=== PATIENT | male | born 1985 | race Caucasian/White ===

== ENCOUNTER 2017-10-27 18:38 | Emergency (ER) | payer OTHER ==
[2017-10-27] MEDS ORDERED: MAG HYDROX/AL HYDROX/SIMETH 30 ML UDCUP PO ONE (19:30)
[2017-10-27] MEDS ORDERED: FAMOTIDINE 20 MG in NS 100 ML IV ONE (19:30)
[2017-10-27] MEDS ORDERED: NS 1,000 ML IV ONE (19:30)
[2017-10-27] MEDS ORDERED: HYOSCYAMINE SULFATE 0.125 MG TAB PO ONE (19:30)
[2017-10-27] MEDS ORDERED: LIDOCAINE 2% VISCOUS 15 ML UDCUP PO ONE (19:30)
--- NOTE | 2017-10-27 19:41 | EDPHY ---
H & P Time Seen by Provider: 10/27/17 18:49 HPI/ROS: CHIEF COMPLAINT: Abdominal pain HISTORY OF PRESENT ILLNESS: Patient states today around 3:00 p.m. He was sitting at a table playing board games with some friends when he developed a sharp"grabbing"pain in his epigastric region. He had eaten some gummy worms and drank water but had not had any other food immediately prior to the onset of pain. He has not been drinking any alcohol. He did notice on his drive home that the pain was intense and it"hurt to breathe"and he felt a little lightheaded. After he arrived home he started feeling better and ate some bread which made the pain"spike up again". He did notice some radiation to the right flank. He had no nausea or vomiting. He has had no stool changes. He has never had this pain before although he does state that he has a history of heartburn but this feels quite different. Also no urinary complaints. No recent illnesses. Did start Accutane 1 month ago for acne. He has been having lab tests checked since on this medication. He has also had some joint pains recently which was thought to be related to the Accutane. REVIEW OF SYSTEMS: Constitutional: No fever, no chills. Eyes: No discharge. ENT: No sore throat. Cardiovascular: No chest pain, no palpitations. Respiratory: No cough, no shortness of breath. Gastrointestinal: Per HPI Genitourinary: No dysuria. No testicular pain. Musculoskeletal: No back pain. Skin: No rashes. Neurological: No headache. General Appearance: Alert, no distress. Eyes: Pupils equal and round no pallor or injection. ENT, Mouth: Mucous membranes moist. Respiratory: There are no retractions, lungs are clear to auscultation. Cardiovascular: Regular rate and rhythm. Normal femoral pulses. Gastrointestinal: Tenderness to palpation in the epigastric region. No masses , bowel sounds present but hypoactive. No CVA tenderness. Negative Saavedra's. Neurological: No focal neurologic deficits. Normal cranial nerves. Skin: Warm and dry, no rashes. Musculoskeletal: Neck is supple nontender. Extremities are symmetrical, full range of motion, no edema. Psychiatric: Patient is oriented X 3, there is no agitation. Medical/surgical history: Acne. No surgeries. Social history: No alcohol or tobacco. Family history: no early coronary artery disease however paternal grandfather of myocardial infarction in his 60s or 70s. Father with noninsulin dependent diabetes, mother with hypertension. Smoking Status: Never smoked Constitutional: Initial Vital Signs Temperature (C) 36.8 C 10/27/17 18:45 Heart Rate 75 10/27/17 18:45 Respiratory Rate 16 10/27/17 18:45 Blood Pressure 123/85 H 10/27/17 18:45 O2 Sat (%) 98 10/27/17 18:45 O2 Delivery Mode Room Air Allergies/Adverse Reactions: No Known Allergies Allergy (Verified 10/27/17 18:44) Home Medications: Medication Instructions Recorded Myorisan 10/27/17 Triamcinolone 0.1% 10/27/17 Medical Decision Making - Diagnostics EKG Interpretation: EKG shows normal sinus rhythm with a first-degree AV block. Otherwise normal EKG see trace master. Imaging Results: Imaging Impressions Abdomen Ultrasound 10/27/17 19:31 Impression: Normal right upper quadrant ultrasound. Findings discussed with the nurse working with Tara Webb MD at 20:37 hour, 10/27/2017. Abdomen CT 10/27/17 21:26 Impression: 1. Tiny incidental 1 to 2 mm nonobstructive calculus mid left kidney. Otherwise , normal CT abdomen and pelvis with contrast enhancement. 2. No CT evidence of appendicitis, abscess or bowel obstruction. Findings discussed with Tara Webb MD at 22:15 hour, 10/27/2017. Imaging: Discussed imaging studies w/ library sales consultant Radiologist ED Course/Re-evaluation: 9:40 p.m. Re-evaluation shows patient improved, pain 2/10. 10:10 p.m. patient tried p.o. Water which made his pain worse. Still awaiting lipase. CT scan abdomen and pelvis ordered. 10:[address] scan discussed. No findings of note on CT. Will try metoclopramide and Benadryl for epigastric pain. Reviewed follow-up and return precautions. Differential Diagnosis: Differential diagnosis includes but is not limited to gastroesophageal reflux disease, peptic ulcer disease, pancreatitis, cholecystitis. After extensive evaluation in the emergency department unclear cause of patient's discomfort. Possibly exacerbation of his gastroesophageal reflux disease however atypical per patient. No evidence of surgical abdomen, pancreatitis, gallbladder disease , kidney stone, coronary artery disease. Made recommendations to try acid reducing medications and follow up with primary care for H pylori testing as indicated. Discussed in detail follow-up options and return precautions. Stable for discharge. - Data Points Laboratory Results: 10/27/17 10/27/17 19:59 19:07 POC Sodium 142 mEq/L mEq/L (135-145) POC Potassium 3.7 mEq/L mEq/L (3.3-5.0) POC Chloride 105.0 mEq/L mEq/L (97-110) POC Total CO2 25 mEq/L mEq/L (22-31) POC BUN 18 mg/dL mg/dL (7-23) POC Creatinine 1.0 mg/dL mg/dL (0.7-1.3) POC Glucose 106 mg/dL H mg/dL (70-100) POC Calcium 9.1 mg/dL mg/dL (8.5-10.4) POC Total Bilirubin 1.5 mg/dL H mg/dL (0.1-1.4) POC AST 61 IU/L H IU/L (17-59) POC ALT 56 IU/L IU/L (21-72) POC Alk Phosphatase 84 IU/L IU/L (38-126) POC Total Protein 7.6 g/dL g/dL (6.3-8.2) POC Albumin 4.0 g/dL g/dL (3.5-5.0) Lipase 80 IU/L IU/L (23-300) Medications Given: Discontinued Medications Al Hydroxide/Mg Hydroxide (Maalox Susp) 30 ml PO ONCE ONE Stop: 10/27/17 19:31 Last Admin: 10/27/17 19:46 Dose: 30 ml Diphenhydramine HCl (Benadryl Injection) 50 mg IVP EDNOW ONE Stop: 10/27/17 22:30 Last Admin: 10/27/17 22:35 Dose: 50 mg Hyoscyamine Sulfate (Levsin, Hyomax-Sl) 0.25 mg PO ONCE ONE Stop: 10/27/17 19:31 Last Admin: 10/27/17 19:46 Dose: 0.25 mg Sodium Chloride (Ns) 1,000 mls @ 0 mls/hr IV EDNOW ONE; Wide Open PRN Reason: Protocol Stop: 10/27/17 19:31 Last Admin: 10/27/17 19:46 Dose: 1,000 mls Famotidine 20 mg/ Sodium (Chloride) 102 mls @ 408 mls/hr IV EDNOW ONE Stop: 10/27/17 19:44 Last Admin: 10/27/17 19:45 Dose: 102 mls Sodium Chloride (Ns) 500 mls @ 0 mls/hr IV ONCE ONE PRN Reason: Wide Open Stop: 10/27/17 21:06 Last Admin: 10/27/17 21:11 Dose: 500 mls Ketorolac Tromethamine (Toradol) 15 mg IVP EDNOW ONE Stop: 10/27/17 21:06 Last Admin: 10/27/17 21:11 Dose: 15 mg Lidocaine (Lidocaine 2% Viscous) 15 ml PO ONCE ONE Stop: 10/27/17 19:31 Last Admin: 10/27/17 19:46 Dose: 15 ml Metoclopramide HCl (Reglan Injection) 10 mg IVP EDNOW ONE Stop: 10/27/17 22:30 Last Admin: 10/27/17 22:35 Dose: 10 mg Point of Care Test Results: CBC CBC Collection Date 10/27/17 CBC Collection Time 19:35 WBC 11.3 RBC 5.32 HGB 15.6 HCT 46.3 PLT 216 Neut # 10.2 Neut 89.9 LYMPH # 0.5 LYMPH 4.8 Other WBC # 0.6 Other WBC 5.3 MCV 87 Chemistry 10/27/17 19:59 POC Sodium 142 mEq/L mEq/L (135-145) POC Potassium 3.7 mEq/L mEq/L (3.3-5.0) POC Chloride 105.0 mEq/L mEq/L (97-110) POC Total CO2 25 mEq/L mEq/L (22-31) POC BUN 18 mg/dL mg/dL (7-23) POC Creatinine 1.0 mg/dL mg/dL (0.7-1.3) POC Glucose 106 mg/dL H mg/dL (70-100) POC Calcium 9.1 mg/dL mg/dL (8.5-10.4) POC Total Bilirubin 1.5 mg/dL H mg/dL (0.1-1.4) POC AST 61 IU/L H IU/L (17-59) POC ALT 56 IU/L IU/L (21-72) POC Alk Phosphatase 84 IU/L IU/L (38-126) POC Total Protein 7.6 g/dL g/dL (6.3-8.2) POC Albumin 4.0 g/dL g/dL (3.5-5.0) Urine Dip Collection Date 10/27/17 Collection Time 21:50 Specific [place] (1.002-1.030) 1.025 PH (5.0-7.5) 6.0 Leukocytes (Negative) Trace Nitrites (Negative) Negative Protein (Negative) Trace Glucose (Negative) Negative Ketones (Negative) Negative Urobilnogen (0.2-1.0 EU) 0.2 Bilirubin (Negative) Negative Blood (Negative) Negative Departure - Departure Clinical Impression: Abdominal pain Qualifiers: Abdominal location: epigastric Qualified Code(s): R10.13 - Epigastric pain Condition: Fair Instructions: Epigastric Pain (ED) Additional Instructions: Try acid reducing medications as discussed. Follow up with Dr. Cruz and inquire about H pylori testing. Please return to the emergency department if you developed more severe symptoms, vomiting, fever or other concerns. Referrals: Dann Cruz MD [Primary Care Provider] - As per Instructions
--- NOTE | 2017-10-27 20:04 | CPEKG ---
Heart Rate: 64 RR Interval: 938 P-R Interval: 212 QRSD Interval: 88 QT Interval: 384 QTC Interval: 396 P [place]: 41 QRS [place]: -12 T Wave [place]: 22 EKG Severity - ABNORMAL ECG - EKG Impression: SINUS RHYTHM EKG Impression: FIRST DEGREE AV BLOCK EKG Impression: Otherwise normal EKG Electronically Signed By: Tara Webb 27-Oct-2017 20:08:48
[2017-10-27] MEDS ORDERED: NS 500 ML IV ONE (21:05)
[2017-10-27] MEDS ORDERED: KETOROLAC 15 MG/1 ML SDV IVP ONE (21:05)
[2017-10-27] MEDS ORDERED: IOPAMIDOL (ISOVUE-300) 100 ML BTL ONE (21:36)
[2017-10-27 22:06] VITALS: BP 114/84
[2017-10-27] MEDS ORDERED: METOCLOPRAMIDE 10 MG/2 ML VIAL IVP ONE (22:29)
== END 2017-10-27 23:11 | disposition home or self-care (01) ==
LOC: CED 18:38
DX: R10.13 Epigastric pain (principal)
CPT/HCPCS: 74177-PO; 76705-PO; 80053-PO; 96374; J1200; J1885; J2765; Q9967